=== PATIENT | male | born 1945 | race Caucasian/White ===

== ENCOUNTER → 2016-07-31 | Outpatient (CLI) | payer OTHER, MEDICARE ==
[~2016-07-31] MED LIST: BUPIVACAINE MPF 0.5% 10 ML VIAL for KCIC. IJ ONE; CONTRAST GIVEN MC PRN; IOHEXOL 300 MG/ML 50 ML VIAL. INT ART ONE; LIDOCAINE 1% Multi-Dose 20 ML VIAL. ID ONE; methylPREDNISolone ACETATE 40 MG/ML VIAL. INT ART ONE
--- NOTE | 2016-07-31 13:32 | KCIC ---
Therapeutic left hip injection using fluoroscopic guidance: Indication: Left. hip pain.. Technique: The procedure was explained to the patient as were potential risks. All questions were answered. Informed written consent was obtained. The left hip was prepped and draped in the usual sterile manner. Following administration of local anesthetic, a 22-gauge spinal needle was advanced into the hip joint without difficulty, with care taken to avoid the vascular structures. Stylet was removed and following negative aspiration, a mixture of 5 cc Omnipaque-300, 2 cc (80 mg) Depo-Medrol and 8 cc 0.5% bupivacaine were injected without difficulty. The needle was removed. There was good hemostasis at the injection site. The patient left in stable condition without immediate complication. The patient was given postprocedural instructions, instructed to contact us or the emergency room if there are any complications. FINDINGS: One fluoroscopic image obtained. 2.07 minutes fluoroscopic time. The image shows contrast filling the joint space with partial filling of the iliopsoas bursa and posterior to the rectus femoris, unchanged from prior exam Impression: Successful left hip therapeutic injection. Electronically signed by: Phong Bacon MD (07/31/2016 1:29 PM)
== END | disposition home or self-care (01) ==
LOC: KCIC 12:00
PROVIDERS: ATTEND Internal Medicine
DX: M25.552 Pain in left hip (principal); G89.29 Other chronic pain
CPT/HCPCS: 20610; 77002